=== PATIENT | male | born 1975 | race Caucasian/White ===

== ENCOUNTER 2024-10-18 08:54 | Observation (INO) ==
[2024-10-18 09:07] VITALS: BMI 36.9
--- NOTE | 2024-10-18 09:43 | EKG ---
Test Reason : stroke Blood Pressure : */* mmHG Vent. Rate : 84 BPM Atrial Rate : 84 BPM P-R Int : 122 ms QRS Dur : 106 ms QT Int : 364 ms P-R-T Axes : 5 -26 38 degrees QTc Int : 430 ms Normal sinus rhythm Normal ECG No previous ECGs available Confirmed by Cristo Engel MD ([id number]) on 10/18/2024 12:32:44 PM Referred By: Confirmed By: Cristo Engel MD
--- NOTE | 2024-10-18 09:51 | TELESTROKE ---
[facility] Consult Date of Consult Date of Exam: 10/18/24 Time of Arrival to the ED: 08:54 Vital Signs Vital Signs: Temp Pulse Resp BP Pulse Ox O2 Del Method 10/18/24 09:01 98.1 F 81 18 157/94 97 Room Air History of Present Illness History of Present Illness: [facility] Consult Services Patient Name:Narendra Valiente Date of :1975 Date of Service:10/18/2024 09:14:23 Diagnosis:H53.2 - Diplopia Impression: Patient presented with binocular diplopia. Head CT shows no acute process. no thrombolytics were offered since patient is outside of treatment time window. Concern of stroke vs myasthenia gravis. Would recommend ASA and inpatient evaluation for stroke work up. In the meantime will check Ach R Ab and MUSK ab to rule out occular myasthenia. Our recommendations are outlined below. Recommendations: Stroke/Telemetry Floor Neuro Checks (Q4) Bedside Swallow Eval DVT Prophylaxis IV Fluids, Normal Saline Head of Bed 30 Degrees Euglycemia and Avoid Hyperthermia (PRN Acetaminophen) Initiate or continue Aspirin 325 MG daily Sign Out: Discussed with Emergency Department Provider Advanced Imaging:Advanced Imaging Deferred because: Does not meet criteria due to being out of the 24-hour window for thrombectomy Metrics: Last Known Well: Unknown Dispatch Time: 10/18/2024 09:14:23 Arrival Time: 10/18/2024 08:54:00 Initial Response Time: 10/18/2024 09:20:00Symptoms: Dizziness. Initial patient interaction: 10/18/2024 09:21:38 NIHSS Assessment Completed: 10/18/2024 09:27:00Patient is not a candidate for Thrombolytic. Thrombolytic Medical Decision: 10/18/2024 09:27:24Patient was not deemed candidate for Thrombolytic because of following reasons: LKW outside 4.[address] Head: CT head unremarkable for acute infarction or hemorrhage per Radiology: no acute process Primary Provider Notified of Diagnostic Impression and Management Plan on: 09/2024 09:50:06 History of Present Illness:Patient is a 49 year old Male. Patient was brought by private transportation with symptoms of Dizziness. Past medical history of Hypertension presented with diplopia. History was provided by the patient at bedside. Last seen normal was 3 days ago. patient has had intermittent double vision associated with dizziness that has worsening in intensity and duration. Past Medical History: Hypertension Medications: No Anticoagulant use No Antiplatelet use Reviewed EMR for current medications Allergies: Reviewed Social History: Smoking: Yes Family History: There is no family history of premature cerebrovascular disease pertinent to this consultation ROS : 14 Points Review of Systems was performed and was negative except mentioned in HPI. Past Surgical History: There Is No Surgical History Contributory To Todays Visit Examination: BP(162/92),Pulse(81), 1A: Level of Consciousness - Alert; keenly responsive+ 0 1B: Ask Month and Age - Both Questions Right+ 0 1C: Blink Eyes & Squeeze Hands - Performs Both Tasks+ 0 2: Test Horizontal Extraocular Movements - Normal+ 0 3: Test Visual Pina - No Visual Loss+ 0 4: Test Facial Palsy (Use Grimace if Obtunded) - Normal symmetry+ 0 5A: Test Left Arm Motor Drift - No Drift for 10 Seconds+ 0 5B: Test Right Arm Motor Drift - No Drift for 10 Seconds+ 0 6A: Test Left Leg Motor Drift - No Drift for 5 Seconds+ 0 6B: Test Right Leg Motor Drift - No Drift for 5 Seconds+ 0 7: Test Limb Ataxia (FNF/Heel-[place]) - No Ataxia+ 0 8: Test Sensation - Normal; No sensory loss+ 0 9: Test Language/Aphasia - Normal; No aphasia+ 0 10: Test Dysarthria - Normal+ 0 11: Test Extinction/Inattention - No abnormality+ 0 NIHSS Score:0 Pre-Morbid Modified Nobles Scale:0 Points = No symptoms at all Spoke with :Dr Luciano This consult was conducted in real time using interactive audio and video technology. Patient was informed of the technology being used for this visit and agreed to proceed. Patient located in hospital and provider located at home/office setting. Patient is being evaluated for possible acute neurologic impairment and high probability of imminent or life-threatening deterioration. I spent total of 30 minutes providing care to this patient, including time for face to face visit via telemedicine, review of medical records, imaging studies and discussion of findings with providers, the patient and/or family. Dr Robin Morfin [facility] For Inpatient follow-up with [facility] physician please call [facility] at . As we are not an outpatient service for any post hospital discharge needs please contact the hospital for assistance. If you have any questions for the [facility] physicians or need to reconsult for clinical or diagnostic changes please contact us via [facility] at . Signature :Robin Morfin
[2024-10-18 09:53] LABS: MEAN PLATELET VOLUME 7.8 fL (7.4-11.0); RED CELL DISTRIBUTION WIDTH 13.3 % (11.6-16.5)
--- NOTE | 2024-10-18 10:02 | CT ---
EXAM: BRAIN W/O CON HISTORY: stroke like symptoms, left eye blurry, dizziness; COMPARISON: None available. TECHNIQUE: Multiple helical images of the brain from the vertex to the occiput were obtained. Coronal and sagittal reformats were performed. Dose reduction techniques including Automated Exposure Control (AEC) and adjustment of mA and kV were utilized. FINDINGS: No acute intraparenchymal hemorrhage or cytotoxic edema is identified. No extra-axial fluid collections are seen. No alteration in the attenuation of the brain parenchyma can be identified to suggest acute or subacute ischemic change. However, if the patients symptoms are clinically & neurologically concerning for an acute ischemic event, then MR imaging of the brain with DWI sequencing could be considered to exclude an acute CVA (based on this patient's clinical presentation and the specific medical circumstances). Also, if there remains strong concern for an intracranial neoplasm or mass, then follow-up with CT or MR imaging of the brain with IV contrast is recommended for improved inspection (which would be more sensitive for the assessment of any intracranial neoplasia). The ventricular system is symmetric and nondilated. The extracranial structures are grossly unremarkable. Bilateral maxillary mucous retention cysts are seen with abnormal thickening of the right posterior nasal septum on image number 1 of series 3 which could reflect a nasal polyp or simply mucoperiosteal thickening/rhinitis. Please correlate with CT sinus imaging. IMPRESSION: Negative Head CT Exam. No acute intracranial processes. No acute intracranial hemorrhage identified. Bilateral maxillary mucous retention cysts and chronic appearing maxillary mucoperiosteal thickening is observed within the maxillary sinuses with abnormal mucosal and submucosal thickening of the right posterior nasal septum on image number 1 of series 3 which could reflect a developing nasal polyp or simply mucoperiosteal thickening/rhinitis. Please correlate with follow-up outpatient CT sinus imaging. Please correlate medically as well. If there remains strong clinical concern for an acute CVA/ischemic event in this setting, then follow-up brain MRI with diffusion-weighted sequencing should be considered to definitively exclude acute cerebral ischemia, based on medical history and neurological assessment. THIS IS AN ELECTRONICALLY VERIFIED FINAL REPORT 10/18/2024 9:58 AM - Electronically signed by Dom Yin MD
[2024-10-18 10:04] LABS: INR 1.09 (0.8-1.3)
[2024-10-18 10:09] LABS: CHOL/HDL RATIO 4.1 (0.0-5.0); COR NA(FOR HYPERGLY) 140 mmol/L (136-145); CREATININE 0.91 mg/dL (0.70-1.30); eGFR NON BLACK RACES > 60 (>60)
--- NOTE | 2024-10-18 10:48 | DR.WEAKNES ---
HPI Time Seen Time Seen by Provider: 10/18/24 09:46 Primary Care Physician Primary Care Physician: DIANE HPI Comment HPI Comment: Patient states that for the last 3 days he has had episodes where his left eye will drift up and he would have dizziness during these times. The episodes have lasted about 45 minutes to an hour. He states that afterwards his eyes returned to normal. Patient states when this happens he gets dizzy. Patient had another episode this morning which has resolved at the time he came to the ER. He denies any other neurologic signs or symptoms except for feeling dizzy during the event which has resolved since. Teleneurology was consulted immediately. Complaints Chief Complaint:: Patient states that for 3 days now he has been having episodes where his left eye would drift up and he would get dizzy during these times. He states that these episodes last around 45 minutes to an hour, then his eyes will go back normal. He states that during the times that his eyes drift apart, he feels dizzy and is unable to focus his eyes straight ahead. He states that the episode happened again this morning and it has since resolved after arriving. He also states that he has a headache that he rates a 5/10 that is mostly in the back. He denies any weakness or difficulty speaking. He only feels dizzy when his left eye "loses" focus. Source History Provided: Patient Mode of Arrival Mode of Arrival: Ambulatory Timing Onset of Chief Complaint: 10/15/24 Symptom Onset: Known (3 days ago) Context Stroke Symptoms: Dizziness PMH PMH Past Medical History: Yes Past Medical History: Hypertension Past Surgical History: No Family History History of Family Medical Conditions: Yes Family Medical History: Diabetes Mellitus, Cancer, [place], Coronary Artery Disease and Hypertension Social History Does patient currently use any type of tobacco product: Yes Have you used tobacco products in the last 12 months: Yes Type of Tobacco Use: Cigarettes Does any household member use tobacco: No Alcohol Use: None Do you use any recreational Drugs:: No Lives With: Family Lives Where: Home Travel Risk Coronavirus risk:travel/contact w/high risk person: No Has patient experienced Coronavirus symptoms: No Infectious screening In the last 2 months have you had wt loss of >10#?: NO Have you had fever, night sweats or hemotysis?: No Have you traveled outside the country in the last 6 months?: No Isolation: Standard ROS Review of Systems Constitutional: No Symptoms Reported; negative Fever or Weakness Eyes: See HPI and Diplopia ENTM: No Symptoms Reported Respiratoy: No Symptoms Reported Cardiovascular: No Symptoms Reported Gastrointestinal/Abdominal: No Symptoms Reported Genitourinary: No Symptoms Reported Neurological: See HPI and Dizziness; negative Speech Problem Musculoskeletal: No Symptoms Reported Integumentary: No Symptoms Reported Hematologic/Lymphatic: No Symptoms Reported Endocrine: No Symptoms Reported Psychiatric: No Symptoms Reported All Other Systems: Reviewed and Negative PE Vital Signs Vitals: Vital Signs Temperature 98.1 F Pulse Rate 80 Pulse Rate 67 Pulse Rate 76 Pulse Rate 73 Pulse Rate 73 Pulse Rate 69 Pulse Rate 72 Pulse Rate 78 Pulse Rate 78 Pulse Rate 81 Respiratory Rate 23 Respiratory Rate 16 Respiratory Rate 22 Respiratory Rate 24 Respiratory Rate 18 Respiratory Rate 15 Respiratory Rate 18 Blood Pressure 157/94 O2 Sat by Pulse Oximetry 98 O2 Sat by Pulse Oximetry 98 O2 Sat by Pulse Oximetry 98 O2 Sat by Pulse Oximetry 98 O2 Sat by Pulse Oximetry 97 O2 Sat by Pulse Oximetry 96 O2 Sat by Pulse Oximetry 97 O2 Sat by Pulse Oximetry 98 O2 Sat by Pulse Oximetry 97 O2 Sat by Pulse Oximetry 97 General Limitations: No Limitations General Appearance: Alert and In No Apparent Distress Head Head Exam: Normal Inspection Eyes Eye exam: Normal Appearance Eyelids: Normal Inspection: Bilateral Pupils: Regular, Round: Bilateral Sclera/Conjunctival: Normal Inspection: Bilateral Anterior Chamber: Normal Inspection: Bilateral ENT ENT Exam: Normal Exam Mouth Exam: Normal Inspection Throat Exam: Normal Inspection Neck Neck Exam: Normal Inspection Chest Chest Inspection: Normal Inspection Respiratory Respiratory Exam: Normal Lung Sounds Bilat Respiratory Exam: Bilateral: Clear to Auscultation Cardiovascular Cardiovascular Exam: Regular Rate and Normal Rhythm Abdominal Exam Abdominal Exam: Normal Inspection, Normal Bowel Sounds and Soft Extremities Extremities Exam: Normal Inspection Back Back Exam: Normal Inspection Neurologic Neurological Exam: Alert and Oriented X3 Speech: Fluid Speech Cranial Nerve Exam: EOM Function (II, III, IV, ): Normal, Facial Sensation (V): Normal, Facial Palsy (VII): Normal, Spinal Accessory Function (XI): Normal and Tongue Deviation: Normal Cerebellar Function: Finger to Nose: Normal Motor Strength - LUE: 5/5 Motor Strength - RUE: 5/5 Motor Strength - LLE: 5/5 Motor Strength - RLE: 5/5 DTR: achilles tendon (L): 2+, achilles tendon (R): 2+, bicep (L): 2+, bicep (R): 2+, Patellar (L): 2+ and patellar (R): 2+ Psychiatric Psychiatric Exam: Normal Affect and Normal Mood Skin Skin Exam: Warm, Dry, Intact and Normal Color COURSE Treatment Treatment: Discussed case with teleneurology and he has suspicion for ocular myasthenia versus stroke. Recommended MRI. States he was adding other workup to the orders. I discussed results of workup with patient. Consultation Consultation Comments: Discussed case with Dr. Jesus and he is agreeable to admission. MRI has been ordered and is pending. ROR Labs Reviewed Laboratory Results Reviewed?: Yes 10/18/24 09:35 10/18/24 09:35 Laboratory: WBC 10.5 X10^3/uL (3.6-10.0) H 10/18/24 09:35 RBC 5.39 X10^6/uL (4.7-6.0) 10/18/24 09:35 Hgb 17.1 g/dL (13.5-18.0) 10/18/24 09:35 Hct 49.0 % (42.0-54.0) 10/18/24 09:35 MCV 91.0 fL (80.0-100.0) 10/18/24 09:35 MCH 31.8 pg (27.0-34.0) 10/18/24 09:35 MCHC 35.0 g/dL (33.0-35.0) 10/18/24 09:35 RDW 13.3 % (11.6-16.5) 10/18/24 09:35 Plt Count 266 X10^3/uL (150.0-450.0) 10/18/24 09:35 MPV 7.8 fL (7.4-11.0) 10/18/24 09:35 Neut % (Auto) 68.1 % (42.0-75.0) 10/18/24 09:35 Lymph % (Auto) 24.1 % (21.0-51.0) 10/18/24 09:35 [place] % (Auto) 4.8 % (0.0-13.0) 10/18/24 09:35 Eos % (Auto) 2.6 % (0.9-2.9) 10/18/24 09:35 Baso % (Auto) 0.4 % (0.2-1.0) 10/18/24 09:35 Neut # (Auto) 7.2 x10^3/uL (2.2-4.8) H 10/18/24 09:35 Lymph # (Auto) 2.5 X10^3/uL (1.3-2.9) 10/18/24 09:35 [place] # (Auto) 0.5 x10^3/uL (0.3-0.8) 10/18/24 09:35 Eos # (Auto) 0.3 x10^3/uL (0.0-0.2) H 10/18/24 09:35 Baso # (Auto) 0.0 X10^3/uL (0.0-0.1) 10/18/24 09:35 Absolute Nucleated RBC 0.1 /100WBC 10/18/24 09:35 PT 14.3 SECONDS (11.8-14.3) 10/18/24 09:35 INR Target Range - 10/18/24 09:35 INR 1.09 (0.8-1.3) 10/18/24 09:35 APTT 32.4 SECONDS (22.9-36.5) 10/18/24 09:35 PTT Comment - 10/18/24 09:35 Fibrinogen 443 mg/dL (239-489) 10/18/24 09:35 Sodium 138 mmol/L (136-145) 10/18/24 09:35 Corrected Sodium 140 mmol/L (136-145) 10/18/24 09:35 Potassium 3.8 mmol/L (3.5-5.1) 10/18/24 09:35 Chloride 103 mmol/L (98-107) 10/18/24 09:35 Carbon Dioxide 28.1 mmol/L (21-32) 10/18/24 09:35 BUN 12 mg/dL (7-18) 10/18/24 09:35 Creatinine 0.91 mg/dL (0.70-1.30) 10/18/24 09:35 Est GFR (MDRD) Af Amer > 60 (>60) 10/18/24 09:35 Est GFR (MDRD) Non-Af > 60 (>60) 10/18/24 09:35 Glucose 170 mg/dL (65-99) H 10/18/24 09:35 Hemoglobin A1c 8.5 % 10/18/24 09:35 Calcium 9.2 mg/dL (8.5-10.1) 10/18/24 09:35 Corrected Calcium TNP 10/18/24 09:35 Total Bilirubin 1.00 mg/dL (0.2-1.0) 10/18/24 09:35 AST 27 Units/L (15-37) 10/18/24 09:35 ALT 42 Units/L (12-78) 10/18/24 09:35 Alkaline Phosphatase 119 Units/L (46-116) H 10/18/24 09:35 Creatine Kinase 191 Units/L (39-308) 10/18/24 09:35 Troponin I High Sens 16.0 ng/L (4.0-60.0) 10/18/24 09:35 Total Protein 7.9 g/dL (6.4-8.2) 10/18/24 09:35 Albumin 4.1 g/dL (3.4-5.0) 10/18/24 09:35 Globulin 3.8 g/dL (2.5-4.5) 10/18/24 09:35 Albumin/Globulin Ratio 1.1 Ratio (1.1-2.1) 10/18/24 09:35 Triglycerides 113 mg/dL (0-150) 10/18/24 09:35 Cholesterol 197 mg/dL (0-200) 10/18/24 09:35 LDL Cholesterol, Calc 126 mg/dL (0-100) H 10/18/24 09:35 HDL Cholesterol 48 mg/dL (40-60) 10/18/24 09:35 Cholesterol/HDL Ratio 4.1 (0.0-5.0) 10/18/24 09:35 Blood Type O NEGATIVE 10/18/24 09:35 Antibody Screen Negative 10/18/24 09:35 Other Results Comments: [id number] 1975 Sex: M Location: ER Order Number(s): [id number] Procedure(s):BRAIN CT W/O CON Ordering Physician: Hector Luciano Primary Care: NFD,None Service Date: 10/18/24 Service Time: 909 EXAM: BRAIN W/O CON HISTORY: stroke like symptoms, left eye blurry, dizziness; COMPARISON: None available. TECHNIQUE: Multiple helical images of the brain from the vertex to the occiput were obtained. Coronal and sagittal reformats were performed. Dose reduction techniques including Automated Exposure Control (AEC) and adjustment of mA and kV were utilized. FINDINGS: No acute intraparenchymal hemorrhage or cytotoxic edema is identified. No extra-axial fluid collections are seen. No alteration in the attenuation of the brain parenchyma can be identified to suggest acute or subacute ischemic change. However, if the patients symptoms are clinically & neurologically concerning for an acute ischemic event, then MR imaging of the brain with DWI sequencing could be considered to exclude an acute CVA (based on this patient's clinical presentation and the specific medical circumstances). Also, if there remains strong concern for an intracranial neoplasm or mass, then follow-up with CT or MR imaging of the brain with IV contrast is recommended for improved inspection (which would be more sensitive for the assessment of any intracranial neoplasia). The ventricular system is symmetric and nondilated. The extracranial structures are grossly unremarkable. Bilateral maxillary mucous retention cysts are seen with abnormal thickening of the right posterior nasal septum on image number 1 of series 3 which could reflect a nasal polyp or simply mucoperiosteal thickening/rhinitis. Please correlate with CT sinus imaging. IMPRESSION: Negative Head CT Exam. No acute intracranial processes. No acute intracranial hemorrhage identified. Bilateral maxillary mucous retention cysts and chronic appearing maxillary mucoperiosteal thickening is observed within the maxillary sinuses with abnormal mucosal and submucosal thickening of the right posterior nasal septum on image number 1 of series 3 which could reflect a developing nasal polyp or simply mucoperiosteal thickening/rhinitis. Please correlate with follow-up outpatient CT sinus imaging. Please correlate medically as well. If there remains strong clinical concern for an acute CVA/ischemic event in this setting, then follow-up brain MRI with diffusion-weighted sequencing should be considered to definitively exclude acute cerebral ischemia, based on medical history and neurological assessment. THIS IS AN ELECTRONICALLY VERIFIED FINAL REPORT 10/18/2024 9:58 AM - Electronically signed by Dom Yin MD XRAY XRAY Interpreted by: Self (Chest x-ray reviewed and interpreted by self. No acute cardiopulmonary abnormalities noted. Radiology report not available at this time.) Opioid Opioid Risk Tool Age (Chalo box if 16-45): No History of Preadolescent Sexual Abuse: No Total: 0 Total Score Risk Category: Low Risk Copyright: Yung HAGEN predicting aberrant behaviors Discharge Plan Diagnosis Discharge Problem: Suspected cerebrovascular accident (CVA) Discharge Plan Patient Disposition: 09 ADMITTED INPATIENT Condition: Stable Prescriptions: No Action [facility] Concerns: Post Hospitalization: new medications and changes needed to prevent readmission or further decline. Pt educated and given instructions on all concerns. Plan of Treatment: Continue with present treatment and follow up plan. Pt is to keep follow up appointment as instructed and take medications as ordered. Orders to Discharge Patient Discharge Orders: Transfer (Routine); Ordered 10/18/24 Ordered By: Hector Luciano Follow ups/Referrals Follow ups/Referrals: NFD,None [Primary Care Provider] - 3 days Instructions Stand Alone Forms: Find Help Web Site, Post Hospital Follow Up Care Print Language: BHUTANESE
--- NOTE | 2024-10-18 12:29 | MRI ---
EXAM: BRAIN W/O CON HISTORY: poss stroke; COMPARISON: Same day CT TECHNIQUE: Multisequential, multiplanar MRI of the brain was performed Without intravenous contrast. FINDINGS: No restricted diffusion or susceptibility artifact to suggest acute infarct or hemorrhage. No mass, significant mass effect, or herniation. Signal intensities are within normal limits for age. No hydrocephalus or extra-axial fluid collections. No acute abnormality to the corpus callosum, pituitary, or posterior fossa as visualized. Basal cisterns are patent. Flow voids are present. Globes are intact. Extraocular muscles and optic nerves are symmetric and unremarkable as visualized. Intraconal and extraconal structures are within normal limits. Retrobulbar fat is within normal limits. Bilateral maxillary sinusitis Visualized extracranial structures are grossly unremarkable. IMPRESSION: 1. No acute intracranial abnormality. THIS IS AN ELECTRONICALLY VERIFIED FINAL REPORT 10/18/2024 12:25 PM - Electronically signed by Hal Infante MD
[2024-10-18] MEDS ORDERED: ZOFRAN INJ 4 MG VIAL IVP PRN (13:05)
[2024-10-18] MEDS ORDERED: NovoLIN R (or HumuLIN R) SUBCUT PRN (13:05)
[2024-10-18] MEDS ORDERED: TYLENOL 325 MG TAB PO PRN (13:05)
[2024-10-18] MEDS ORDERED: NORCO 5/325 MG TAB PO PRN (13:05)
--- NOTE | 2024-10-18 14:29 | RAD ---
EXAM: CHEST, 1 VIEW HISTORY: dizziness; COMPARISON: No relevant prior studies were available for comparison at the time of interpretation. TECHNIQUE: CHEST, 1 VIEW FINDINGS: Chest: Lines and tubes: Cardiac leads overlie the chest. Mediastinum: Cardiac and mediastinal shadow is within normal limits for size and contour. Pulmonary vessels: No pulmonary vascular congestion. Lung lundy: No suspicious airspace opacity. Pleura: No effusion. No pneumothorax. Bones and soft tissues: No acute osseous or soft tissue abnormality. IMPRESSION: 1. No acute cardiopulmonary abnormality THIS IS AN ELECTRONICALLY VERIFIED FINAL REPORT 10/18/2024 2:26 PM - Electronically signed by Hal Infante MD
[2024-10-18] MEDS: K-DUR TAB 20 MEQ PO ONE (16:04)
[2024-10-18] MEDS: CONSULT PHARMACY - POTASSIUM & MAGNESIUM XX SCH (16:05)
[2024-10-18] MEDS: SNACK - Diabetic Appropriate PO SCH (20:27)
[2024-10-18] MEDS: ULTRAM PO PRN (20:47)
[2024-10-19 05:47] LABS: MEAN PLATELET VOLUME 7.8 fL (7.4-11.0); RED CELL DISTRIBUTION WIDTH 13.2 % (11.6-16.5)
[2024-10-19 06:00] LABS: BLOOD/HEMOGLOBIN,URINE NEGATIVE (NEGATIVE); LEUKOCYTE ESTERASE ,URINE NEGATIVE (NEGATIVE); NITRITES,URINE NEGATIVE (NEGATIVE)
[2024-10-19 06:02] LABS: COR NA(FOR HYPERGLY) 139 mmol/L (136-145); CREATININE 0.86 mg/dL (0.70-1.30); eGFR NON BLACK RACES > 60 (>60)
[2024-10-19 06:10] LABS: APPEARANCE,URINE CLEAR (CLEAR); SQUAMOUS EPITHELIAL CELL,UR NEGATIVE /HPF (NEGATIVE)
[2024-10-19 07:45] VITALS: BP 140/94; PULSE 81; RESP 18; TEMP 98.3; O2SAT 97
--- NOTE | 2024-10-19 09:22 | DR.SSS ---
SHORT STAY SUMMARY Admission Date Date of Admission: 10/18/24 Discharge Date Discharge Date: 10/19/24 Admission Diagnoses Admission Diagnoses: suspected CVA Discharge Diagnoses Discharge Diagnoses: HTN, dehydration Chief Complaint Chief Complaint: blurry vision History of Present Illness History of Present Illness: HPI on 10/18/2024: Patient states that for the last 3 days he has had episodes where his left eye will drift up and he would have dizziness during these times. The episodes have lasted about 45 minutes to an hour. He states that afterwards his eyes returned to normal. Patient states when this happens he gets dizzy. Patient had another episode this morning which has resolved at the time he came to the ER. He denies any other neurologic signs or symptoms except for feeling dizzy during the event which has resolved since. Teleneurology was consulted immediately. Admission HPI: Patient does agree with above. [place] much better last night today. Did have 1 more episode on the floor. None this morning. He does think that he was exhausted and slightly dehydrated. 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 Drinks a lot of caffeinated drinks. PMH: Denies PSH: Denies Social: , local resident, does smoke, works full-time in [employer] business. ROS: 12 point ROS otherwise negative. PE: Well-developed, well-nourished, obese male in no acute distress. CN II through XII grossly normal. HINTS exam more consistent with peripheral. Heart regular rate and rhythm with no murmur. Lungs clear to auscultation bilaterally. Belly protuberant with bowel sounds present, soft, nontender. Gait and station normal. Cerebellar testing benign. Mood and affect are appropriate. Alert and oriented x 4. EOMI, hearing intact conversation, NCAT, speech clear. Past Medical History Past Medical History: Hypertension Allergies Allergies Allergy/AdvReac Type Severity Reaction Status Date / Time No Known Allergies Allergy Verified 10/18/24 12:02 Medications Home Medications: No Known Allergies Allergy (Verified 10/18/24 12:02) CONTINUE taking the following medications NK 10/18/24 [History] Family History Family Medical History: Diabetes Mellitus, Cancer, [place], Coronary Artery Disease and Hypertension Social History Does patient currently use any type of tobacco product: No Have you used tobacco products in the last 12 months: Yes Type of Tobacco Use: Cigarettes Does any household member use tobacco: No Alcohol Use: None Drug Use: None Physical Exam Vital Signs: Last Vital Signs Temp 98.6 F 10/19/24 04:00 Pulse 76 10/19/24 04:00 Resp 20 10/19/24 04:00 BP 109/59 10/19/24 04:00 Pulse Ox 99 10/19/24 04:00 O2 Del Method Room Air 10/19/24 04:00 Labs Labs: Laboratory Last Values WBC 8.8 X10^3/uL (3.6-10.0) 10/19/24 05:34 RBC 5.43 X10^6/uL (4.7-6.0) 10/19/24 05:34 Hgb 17.2 g/dL (13.5-18.0) 10/19/24 05:34 Hct 49.2 % (42.0-54.0) 10/19/24 05:34 MCV 90.6 fL (80.0-100.0) 10/19/24 05:34 MCH 31.7 pg (27.0-34.0) 10/19/24 05:34 MCHC 34.9 g/dL (33.0-35.0) 10/19/24 05:34 RDW 13.2 % (11.6-16.5) 10/19/24 05:34 Plt Count 256 X10^3/uL (150.0-450.0) 10/19/24 05:34 MPV 7.8 fL (7.4-11.0) 10/19/24 05:34 Neut % (Auto) 56.9 % (42.0-75.0) 10/19/24 05:34 Lymph % (Auto) 32.6 % (21.0-51.0) 10/19/24 05:34 [place] % (Auto) 6.4 % (0.0-13.0) 10/19/24 05:34 Eos % (Auto) 3.9 % (0.9-2.9) H 10/19/24 05:34 Baso % (Auto) 0.2 % (0.2-1.0) 10/19/24 05:34 Neut # (Auto) 5.0 x10^3/uL (2.2-4.8) H 10/19/24 05:34 Lymph # (Auto) 2.9 X10^3/uL (1.3-2.9) 10/19/24 05:34 [place] # (Auto) 0.6 x10^3/uL (0.3-0.8) 10/19/24 05:34 Eos # (Auto) 0.3 x10^3/uL (0.0-0.2) H 10/19/24 05:34 Baso # (Auto) 0.0 X10^3/uL (0.0-0.1) 10/19/24 05:34 Absolute Nucleated RBC 0.0 /100WBC 10/19/24 05:34 PT 14.3 SECONDS (11.8-14.3) 10/18/24 09:35 INR Target Range - 10/18/24 09:35 INR 1.09 (0.8-1.3) 10/18/24 09:35 APTT 32.4 SECONDS (22.9-36.5) 10/18/24 09:35 PTT Comment - 10/18/24 09:35 Fibrinogen 443 mg/dL (239-489) 10/18/24 09:35 Sodium 138 mmol/L (136-145) 10/19/24 05:34 Corrected Sodium 139 mmol/L (136-145) 10/19/24 05:34 Potassium 4.1 mmol/L (3.5-5.1) 10/19/24 05:34 Chloride 104 mmol/L (98-107) 10/19/24 05:34 Carbon Dioxide 27.5 mmol/L (21-32) 10/19/24 05:34 BUN 12 mg/dL (7-18) 10/19/24 05:34 Creatinine 0.86 mg/dL (0.70-1.30) 10/19/24 05:34 Est GFR (MDRD) Af Amer > 60 (>60) 10/19/24 05:34 Est GFR (MDRD) Non-Af > 60 (>60) 10/19/24 05:34 Glucose 148 mg/dL (65-99) H 10/19/24 05:34 Hemoglobin A1c 8.5 % 10/18/24 09:35 Calcium 8.9 mg/dL (8.5-10.1) 10/19/24 05:34 Corrected Calcium TNP 10/19/24 05:34 Total Bilirubin 0.90 mg/dL (0.2-1.0) 10/19/24 05:34 AST 23 Units/L (15-37) 10/19/24 05:34 ALT 42 Units/L (12-78) 10/19/24 05:34 Alkaline Phosphatase 115 Units/L (46-116) 10/19/24 05:34 Creatine Kinase 191 Units/L (39-308) 10/18/24 09:35 Troponin I High Sens 16.0 ng/L (4.0-60.0) 10/18/24 09:35 Total Protein 7.5 g/dL (6.4-8.2) 10/19/24 05:34 Albumin 3.7 g/dL (3.4-5.0) 10/19/24 05:34 Globulin 3.8 g/dL (2.5-4.5) 10/19/24 05:34 Albumin/Globulin Ratio 1.0 Ratio (1.1-2.1) L 10/19/24 05:34 Triglycerides 113 mg/dL (0-150) 10/18/24 09:35 Cholesterol 197 mg/dL (0-200) 10/18/24 09:35 LDL Cholesterol, Calc 126 mg/dL (0-100) H 10/18/24 09:35 HDL Cholesterol 48 mg/dL (40-60) 10/18/24 09:35 Cholesterol/HDL Ratio 4.1 (0.0-5.0) 10/18/24 09:35 Specimen Type Clean catch urine 10/19/24 05:28 Urine Color Yellow (YELLOW) 10/19/24 05:28 Urine Appearance Clear (CLEAR) 10/19/24 05:28 Urine pH 5.0 (5.0 - 8.0) 10/19/24 05:28 Ur Specific [place] 1.025 (1.000-1.030) 10/19/24 05:28 Urine Protein 1+ (NEGATIVE) 10/19/24 05:28 Urine Glucose (UA) Negative (NEGATIVE) 10/19/24 05:28 Urine Ketones Negative (NEGATIVE) 10/19/24 05:28 Urine Blood Negative (NEGATIVE) 10/19/24 05:28 Urine Nitrite Negative (NEGATIVE) 10/19/24 05:28 Urine Bilirubin Negative (NEGATIVE) 10/19/24 05:28 Urine Urobilinogen Normal (NORMAL) 10/19/24 05:28 Ur Leukocyte Esterase Negative (NEGATIVE) 10/19/24 05:28 Urine RBC None seen /HPF (0-3) 10/19/24 05:28 Urine WBC None seen /HPF (0-5) 10/19/24 05:28 Ur Squamous Epith Cells Negative /HPF (NEGATIVE) 10/19/24 05:28 Amorphous Sediment Trace /HPF (NEGATIVE) 10/19/24 05:28 Urine Bacteria Negative /HPF (NEGATIVE) 10/19/24 05:28 Ur Culture Indicated? No/not indicated 10/19/24 05:28 Blood Type O NEGATIVE 10/19/24 05:34 Antibody Screen Negative 10/18/24 09:35 Assessment/Plan (1) Essential (primary) hypertension: (2) Suspected cerebrovascular accident (CVA): Hospital Course Hospital Course: Patient brought into observation status on the medical floor. MRI report came back benign. Diplopia resolved. Myasthenia gravis labs pending. Patient reports full resolution of symptoms this morning. States he feels like he was dehydrated and fatigued. Labs are benign. Vitals show hypertension. Does agree to outpatient optometry evaluation along with following up with PCP. Discharged home in improved, stable condition. Norvasc added. Discharge Medications Discharge Medications: Home Medication List NK 10/18/24 [History] Prescriptions: Discharge Plan Discharge Plan Patient Disposition: 01 HOME, SELF-CARE Condition: Stable Health Concerns: Post Hospitalization: new medications and changes needed to prevent readmission or further decline. Pt educated and given instructions on all concerns. Care Plan Goals: Problem: Pain/Alteration in Comfort Goal: Improve/ Resolve Pain; Achieve Pain Tolerance Instructions: Take pain medications as prescribed. Contact your primary care provider if your pain is unrelieved or worsens. Follow up with primary care provider as directed. Plan of Treatment: Continue with present treatment and follow up plan. Pt is to keep follow up appointment as instructed and take medications as ordered. Prescription drug monitoring program results: PDMP reviewed and no concerns identified Prescriptions: New amlodipine 5 mg tablet 5 mg PO QDAY Qty: 30 0RF Orders to Discharge Patient Discharge Orders: Discharge (Routine); Ordered 10/19/24 Ordered By: Tez Jesus Follow ups/Referrals Follow ups/Referrals: Tez Jesus MD [STAFF PHYSICIAN, Family Practice] - 10/25/24 11:00 am Instructions Instructions: How to Take Your Blood Pressure, Hypertension, Adult, [id number], Managing Your Hypertension Stand Alone Forms: Excuse From Work or School, Find Help Web Site, Post Hospital Follow Up Care Print Language: WOLOF
== END 2024-10-19 10:05 | disposition home or self-care (01) ==
LOC: ER 08:54 → MED/SURG 08:54
PROVIDERS: ADMIT Family Medicine; ATTEND Family Medicine
DX: E86.0 Dehydration; H53.2 Diplopia; R51.9 Headache, unspecified; R73.09 Other abnormal glucose; R42 Dizziness and giddiness; I10 Essential (primary) hypertension